=== PATIENT | female | born 1990 | race Native Hawaiian/Other Pacific Islander ===

== ENCOUNTER 2017-02-19 13:31 | Emergency (ER) | payer SELFPAY | END 2017-02-19 14:45 | disposition left against medical advice (07) | LOC: ED 13:31 | DX: T78.40XA Allergy, unspecified, initial encounter (principal); Z53.21 Procedure and treatment not carried out due to patient leaving prior to being seen by health care provider ==

== ENCOUNTER 2017-03-16 16:21 | Emergency (ER) | payer SELFPAY ==
[2017-03-16 16:52] LABS: Basophils % (Auto) 0.5 % (0.0-1.8); Eosinophils % (Auto) 1.7 % (0.0-4.3); Hematocrit 39.8 % (30.3-42.9); Hemoglobin 13.4 gm/dl (10.1-14.3); Mean Corpuscular HGB Conc 34 % (30-34); Mean Corpuscular Hemoglobin 31 pg (28-32); Mean Corpuscular Volume 90 fl (79-97); Platelet Count 185 K/mm3 (140-440); Red Blood Count 4.41 M/mm3 (3.65-5.03); Red Cell Distribution Width 13.2 % (13.2-15.2); White Blood Count 4.1 K/mm3 (4.5-11.0)
[2017-03-16 17:02] LABS: Anion Gap 19 mmol/L; BUN/Creatinine Ratio 18; Blood Urea Nitrogen 7 mg/dL (7-17); Calcium 8.8 mg/dL (8.4-10.2); Carbon Dioxide 21 mmol/L (22-30); Chloride 95.3 mmol/L (98-107); Glucose 112 mg/dL (65-100); Potassium 3.3 mmol/L (3.6-5.0); Sodium 132 mmol/L (137-145)
[2017-03-16 17:18] LABS: Bacteria,Urine 1+ /HPF (Negative); Bilirubin,Urine NEG (Negative); Blood,Urine SM (Negative); Ketones,Urine TR mg/dL (Negative); Leukocyte Esterase,Urine TR (Negative); Mucus,Urine 3+ /HPF; Nitrite,Urine NEG (Negative); Urobilinogen,Urine < 2.0 mg/dL (<2.0)
[2017-03-16] MEDS ORDERED: LACTATED RINGERS 1,000 ML IV ONE (19:33)
[2017-03-16] MEDS ORDERED: REGLAN IV ONE (19:34)
--- NOTE | 2017-03-16 19:35 | Emergency Department Report ---
ED HPI - General Chief complaint: Nausea/Vomiting/Diarrhea Stated complaint: , VOMITNG, DIARRHEA,DIZZY Time Seen by Provider: 03/16/17 19:33 Source: patient Mode of arrival: Ambulatory Limitations: No Limitations - History of Present Illness Initial comments: 27-year-old female past medical history none approximately 8-9 weeks by LMP which was the beginning of January 2017 presents with complaint of one week of intermittent nausea and vomiting. Denies abdominal pain denies vaginal bleeding denies dysuria denies fever or chills. Patient is [place]- speaking which I speak fluently is accompanied by her and daughters. Nontoxic appearing awake alert and oriented 3 MD Complaint: other (persistent nausea and vomiting) Onset/Timin -: week(s) Severity: moderate Improves with: none Worsens with: none Associated symptoms: nausea/vomiting :: Yes Number of weeks : 8 OB History - Previous Pregnancies: no complications Last menstrual period: 01/08/17 Pre-elder care: followed by OB - Related Data : 3 Para: 2 Previous Rx's Medication Instructions Recorded Last Taken Type Butalb/Acetaminophen/Caffeine 1 cap PO Q6HR PRN #10 cap 04/05/16 Unknown Rx [Fioricet 50-300-40 mg CAP] Doxylamine Succinate [Nighttime 25 mg PO QHS PRN #30 tablet 03/16/17 Unknown Rx Sleep-Aid] Sera Root [Sera] 250 mg PO BID PRN #60 capsule 03/16/17 Unknown Rx Metoclopramide HCl [Reglan TAB] 5 mg PO TIDAC PRN #12 tablet 03/16/17 Unknown Rx Pyridoxine [Vitamin B-6] 50 mg PO Q12H PRN #60 tablet 03/16/17 Unknown Rx Allergies Allergy/AdvReac Type Severity Reaction Status Date / Time No Known Allergies Allergy Verified 01/07/14 12:15 ED Review of Systems ROS: Stated complaint: , VOMITNG, DIARRHEA,DIZZY Other details as noted in HPI Constitutional: denies: chills, fever Eyes: denies: eye pain, eye discharge, vision change ENT: denies: ear pain, throat pain Respiratory: denies: cough, shortness of breath, wheezing Cardiovascular: denies: chest pain, palpitations Endocrine: no symptoms reported Gastrointestinal: nausea (1 week of nausea and vomiting). denies: abdominal pain, diarrhea Genitourinary: denies: urgency, dysuria, discharge Musculoskeletal: denies: back pain, joint swelling, arthralgia Skin: denies: rash, lesions Neurological: denies: headache, weakness, paresthesias Psychiatric: denies: anxiety, depression Hematological/Lymphatic: denies: easy bleeding, easy bruising ED Past Medical Hx - Past Medical History Previous Medical History?: No - Surgical History Past Surgical History?: No - Social History Smoking Status: Never Smoker Substance Use Type: None - Medications Home Medications: Home Medications Medication Instructions Recorded Confirmed Last Taken Type Butalb/Acetaminophen/Caffeine 1 cap PO Q6HR PRN #10 cap 04/05/16 Unknown Rx [Fioricet 50-300-40 mg CAP] Doxylamine Succinate [Nighttime 25 mg PO QHS PRN #30 tablet 03/16/17 Unknown Rx Sleep-Aid] Sera Root [Sera] 250 mg PO BID PRN #60 capsule 03/16/17 Unknown Rx Metoclopramide HCl [Reglan TAB] 5 mg PO TIDAC PRN #12 tablet 03/16/17 Unknown Rx Pyridoxine [Vitamin B-6] 50 mg PO Q12H PRN #60 tablet 03/16/17 Unknown Rx ED Physical Exam - General Limitations: No Limitations General appearance: alert, in no apparent distress - Head Head exam: Present: atraumatic, normocephalic - Eye Eye exam: Present: normal appearance, PERRL, EOMI - ENT ENT exam: Present: mucous membranes moist - Neck Neck exam: Present: normal inspection - Respiratory Respiratory exam: Present: normal lung sounds bilaterally. Absent: respiratory distress - Cardiovascular Cardiovascular Exam: Present: regular rate, normal rhythm. Absent: systolic murmur, diastolic murmur, rubs, gallop - GI/Abdominal GI/Abdominal exam: Present: soft, normal bowel sounds - Extremities Exam Extremities exam: Present: normal inspection - Back Exam Back exam: Present: normal inspection - Neurological Exam Neurological exam: Present: alert, oriented X3 - Psychiatric Psychiatric exam: Present: normal affect, normal mood - Skin Skin exam: Present: warm, dry, intact, normal color. Absent: rash ED Course Vital Signs 03/16/17 16:27 Temperature 98.9 F Pulse Rate 87 Respiratory 18 Rate Blood Pressure 124/81 O2 Sat by Pulse 97 Oximetry ED Medical Decision Making - Lab Data Result diagrams: 03/16/17 16:34 03/16/17 16:34 - Medical Decision Making A/P: Hyperemesis gravidarum, nausea and vomiting of 1-ultrasound shows live IUP 2-pt resuscitated with 3 L of IV fluid including normal saline lactate Ringer's and D5NS 3-patient given Reglan, significant reduction of nausea and patient now tolerating by mouth fluids and apple sauce before discharge 4-case discussed with Dr. Parra before discharge, I briefly discussed case with Dr. Nunn as patient has no ketones in urine will give IV fluid resuscitation and antiemetics and given by mouth challenge. Patient now tolerating by mouth therefore I will discharge with OB follow-up Critical care attestation.: If time is entered above; I have spent that time in minutes in the direct care of this critically ill patient, excluding procedure time. ED Disposition Clinical Impression: Nausea and vomiting during Disposition: DC-01 TO HOME OR SELFCARE Is pt being admited?: No Does the pt Need Aspirin: No Condition: Stable Instructions: Morning Sickness (ED), Hyperemesis Gravidarum (ED), Dehydration ( ED) Prescriptions: Doxylamine Succinate [Nighttime Sleep-Aid] 25 mg PO QHS PRN #30 tablet PRN Reason: Nausea Sera Root [Sera] 250 mg PO BID PRN #60 capsule PRN Reason: Nausea Metoclopramide HCl [Reglan TAB] 5 mg PO TIDAC PRN #12 tablet PRN Reason: Nausea Pyridoxine [Vitamin B-6] 50 mg PO Q12H PRN #60 tablet PRN Reason: Nausea Referrals: [facility] [Provider Group] - 3-5 Days Forms: Accompanied Note, Work/School Release Form(ED) Time of Disposition: 23:34 Print Language: ITALIAN
[2017-03-16] MEDS ORDERED: D5NS 1,000 ML IV SCH (20:00)
--- NOTE | 2017-03-16 20:33 | Ultrasound Report ---
FINAL REPORT PROCEDURE: US OB \T\lt; = 14 WEEKS FETUS TECHNIQUE: Real-time transabdominal sonography of the uterus, placenta, amniotic fluid, adnexa, and fetus was performed with image documentation. Measurements were obtained to determine age/size. M-mode Doppler was used to document heartbeat. CPT 21854 HISTORY: hyperemesis gravidarum COMPARISON: No prior studies are available for comparison. FINDINGS: CRL: 25.2 mm, which corresponds to a gestational age of: 9 weeks, 2 days. Yolk Sac: Normal. Embryonic Cardiac Activity: 163 beats per minute Gestational Sac: Normal. Amniotic fluid: Normal. Cervix: Normal. Right Ovary: Normal. Left Ovary: Normal. Estimated delivery date: 10/17/2017 Uterus and adnexa: Normal. IMPRESSION: Single live intrauterine gestation at approximately 9 weeks and 2 days. EDC by US 10/17/2017
--- NOTE | 2017-03-16 20:33 | Ultrasound Report ---
FINAL REPORT PROCEDURE: US OB \T\lt; = 14 WEEKS FETUS TECHNIQUE: Real-time transvaginal sonography of the uterus, placenta, amniotic fluid, adnexa, and fetus was performed with image documentation. Measurements were obtained to determine age/size. M-mode Doppler was used to document heartbeat. HISTORY: hyperemesis gravidarum COMPARISON: No prior studies are available for comparison. FINDINGS: CRL: 25.2 mm, which corresponds to a gestational age of: 9 weeks, 2 days. Yolk Sac: Normal. Embryonic Cardiac Activity: 163 beats per minute Gestational Sac: Normal. Amniotic fluid: Normal. Cervix: Normal. Right Ovary: Normal. Left Ovary: Normal. Estimated delivery date: 10/17/2017 Uterus and adnexa: Normal. IMPRESSION: Single live intrauterine gestation at approximately 9 weeks and 2 days. EDC by US 10/17/2017
[2017-03-16 21:25] LABS: Alanine Aminotransferase 21 units/L (7-56); Albumin 3.8 g/dL (3.9-5); Albumin/Globulin Ratio 1.1 %; Alkaline Phosphatase 32 units/L (35-129); Amylase 68 units/L (27-131); Bilirubin,Total < 0.20 mg/dL (0.1-1.2); Lipase 40 units/L (13-60); Total Protein 7.3 g/dL (6.3-8.2)
[2017-03-16 21:26] LABS: Bilirubin,Direct < 0.2 mg/dL (0-0.2)
[2017-03-16] MEDS ORDERED: ZOFRAN IV ONE (21:57)
[2017-03-16] MEDS ORDERED: NACL 0.9% 1000 ML 1,000 ML IV ONE (21:58)
[2017-03-16 23:48] VITALS: BP 118/77
== END 2017-03-16 23:48 | disposition home or self-care (01) ==
LOC: ED 16:21
DX: O21.0 Mild hyperemesis gravidarum (principal); Z3A.08 8 weeks gestation of pregnancy
CPT/HCPCS: 36415; 76801; 76817; 80048; 80074; 81001; 82150; 83690; 84702; 85025; 86900; 86901; 96361; 96374; 96375; 99284; J2405; J2765; J7030; J7042; J7120

== ENCOUNTER 2017-04-27 07:40 | Emergency (ER) | payer MEDICAID, OTHER ==
[2017-04-27 07:56] VITALS: BP 118/68
[2017-04-27 08:52] LABS: Bacteria,Urine 1+ /HPF (Negative); Bilirubin,Urine NEG (Negative); Blood,Urine NEG (Negative); Ketones,Urine NEG (Negative); Leukocyte Esterase,Urine NEG (Negative); Mucus,Urine 1+ /HPF; Nitrite,Urine NEG (Negative); Protein,Urine <15 mg/dL mg/dL (Negative); Urobilinogen,Urine < 2.0 mg/dL (<2.0)
--- NOTE | 2017-04-27 09:43 | Emergency Department Report ---
ED HPI - General Chief complaint: Urogenital-Female Stated complaint: L SIDE VAG PAIN, PREG Time Seen by Provider: 04/27/17 09:39 Source: patient Mode of arrival: Ambulatory Limitations: No Limitations - History of Present Illness Initial comments: Pt reports 15 weeks gestation and has had pelvic pain, feeling of decreased movement x 3 days. Also reports some yellow vaginal discharge. MD Complaint: abdominal pain, vaginal discharge -: Gradual, days(s) (3) Location: pelvis Radiation: none Severity: mild Severity scale (0 -10): 3 Quality: cramping Consistency: intermittent Improves with: none Worsens with: none Associated symptoms: vaginal discharge Vaginal bleeding: none :: Yes Number of weeks : 15 OB History - Current : no complications - Related Data Home Medications Medication Instructions Recorded Confirmed Last Taken No Known Home Medications [No 04/27/17 04/27/17 Unknown Reported Home Medications] Allergies Allergy/AdvReac Type Severity Reaction Status Date / Time No Known Allergies Allergy Verified 01/07/14 12:15 ED Review of Systems ROS: Stated complaint: L SIDE VAG PAIN, PREG Other details as noted in HPI Comment: All other systems reviewed and negative Constitutional: denies: chills, fever Eyes: denies: eye pain, eye discharge, vision change ENT: denies: ear pain, throat pain Respiratory: denies: cough, shortness of breath, wheezing Cardiovascular: denies: chest pain, palpitations Endocrine: no symptoms reported Gastrointestinal: abdominal pain. denies: nausea, diarrhea Genitourinary: discharge. denies: urgency, dysuria Musculoskeletal: denies: back pain, joint swelling, arthralgia Skin: denies: rash, lesions Neurological: denies: headache, weakness, paresthesias Psychiatric: denies: anxiety, depression Hematological/Lymphatic: denies: easy bleeding, easy bruising ED Past Medical Hx - Past Medical History Previous Medical History?: No - Surgical History Past Surgical History?: No - Social History Smoking Status: Never Smoker Substance Use Type: None - Medications Home Medications: Home Medications Medication Instructions Recorded Confirmed Last Taken Type No Known Home Medications [No 04/27/17 04/27/17 Unknown History Reported Home Medications] ED Physical Exam - General Limitations: No Limitations General appearance: alert, in no apparent distress - Head Head exam: Present: atraumatic, normocephalic - Eye Eye exam: Present: normal appearance - ENT ENT exam: Present: mucous membranes moist - Neck Neck exam: Present: normal inspection - Respiratory Respiratory exam: Present: normal lung sounds bilaterally. Absent: respiratory distress - Cardiovascular Cardiovascular Exam: Present: regular rate, normal rhythm. Absent: systolic murmur, diastolic murmur, rubs, gallop - GI/Abdominal GI/Abdominal exam: Present: soft, normal bowel sounds, other (gravid). Absent: distended, tenderness, guarding, rebound - Extremities Exam Extremities exam: Present: normal inspection - Back Exam Back exam: Present: normal inspection - Neurological Exam Neurological exam: Present: alert, oriented X3 - Psychiatric Psychiatric exam: Present: normal affect, normal mood - Skin Skin exam: Present: warm, dry, intact, normal color. Absent: rash ED Course Vital Signs 04/27/17 07:48 Temperature 98.3 F Pulse Rate 80 Respiratory 18 Rate Blood Pressure 118/68 O2 Sat by Pulse 98 Oximetry - Reevaluation(s) Reevaluation #1: 04/27/17 10:47 Pt is in NAD and stable for d/c. ED Medical Decision Making - Lab Data UA normal - Radiology Data Radiology results: report reviewed normal IUP - Medical Decision Making Pt presents with intermittent pelvic pain in suggestive of round ligament pain. US is normal. Pt refused pelvic and said she would prefer her OB to do it and will call them for follow up Saturday. Advised abstinence from sexual activity until follow up. - Differential Diagnosis threatened ab, pprom, round ligament pain Critical care attestation.: If time is entered above; I have spent that time in minutes in the direct care of this critically ill patient, excluding procedure time. ED Disposition Clinical Impression: Pelvic pain affecting in second trimester, antepartum Disposition: TO HOME OR SELFCARE Is pt being admited?: No Condition: Good Instructions: Abdominal Pain in (ED) Referrals: JOSIAH HELMS [Other] - 3-5 Days DENILSON SIMMONS MD [Staff Physician] - 2-3 Days Time of Disposition: 10:49
--- NOTE | 2017-04-27 10:28 | Ultrasound Report ---
OB ULTRASOUND History: Pelvic pain, decreased movement, 15 week gestation. Comparison: 03/16/17 Technique: Transabdominal ultrasound with Doppler interrogation. Gestation: Single Position: Breech Amniotic Fluid: Within normal limits Placenta: Posterior Placental Grade: 0 Heart Rate: 140 BPM Cervical length: 3.4 cm (Normal > 3 cm) x It is too early for a anatomical survey BPD: 3.3 cm = 16 w 1 d HC: 12.5 cm = 16 w 2 d AC: 10.2 cm = 16 w 1 d FL: 1.7 cm = 15 w 1 d HC/AC Ratio: 1.23 Cephalic Index: 83.0 Estimated Weight: 132 grams Clinical age = 15 w 1 d EDC: 10/18/17 US Gest. Age = 16 w 0 d EDC: 10/12/17 Impression: Viable, single intrauterine as described. No acute abnormality is detected.
== END 2017-04-27 10:55 | disposition home or self-care (01) ==
LOC: ED 07:40
DX: O26.892 Other specified pregnancy related conditions, second trimester (principal); R10.2 Pelvic and perineal pain; Z3A.15 15 weeks gestation of pregnancy
CPT/HCPCS: 76805; 81001; 99284

== ENCOUNTER 2017-06-13 16:09 | Outpatient (CLI) | payer MEDICAID ==
[2017-06-13 16:42] VITALS: BP 121/70
[2017-06-13] MEDS ORDERED: LACTATED RINGERS 500 ML IV ONE (17:00)
[2017-06-13 17:12] LABS: Bacteria,Urine 3+ /HPF (Negative); Bilirubin,Urine NEG (Negative); Blood,Urine SM (Negative); Color,Urine Yellow (Yellow); Hyaline Casts,Urine 1 /LPF; Mucus,Urine 1+ /HPF; Nitrite,Urine NEG (Negative); Protein,Urine <15 mg/dL mg/dL (Negative); Urobilinogen,Urine < 2.0 mg/dL (<2.0)
== END 2017-06-13 18:30 | disposition home or self-care (01) ==
LOC: TRG 16:09
PROVIDERS: ATTEND Obstetrics & Gynecology
DX: O47.02 False labor before 37 completed weeks of gestation, second trimester (principal); Z3A.24 24 weeks gestation of pregnancy
CPT/HCPCS: 59025; 81001; 96360

== ENCOUNTER 2017-07-27 23:16 | Outpatient (CLI) | payer MEDICAID ==
[2017-07-27] MEDS ORDERED: LACTATED RINGERS 1,000 ML IV ONE (23:34)
[2017-07-27 23:46] VITALS: BP 115/63
[2017-07-28 00:40] LABS: Bacteria,Urine 1+ /HPF (Negative); Bilirubin,Urine NEG (Negative); Blood,Urine NEG (Negative); Color,Urine Yellow (Yellow); Mucus,Urine FEW /HPF; Nitrite,Urine NEG (Negative); Protein,Urine <15 mg/dL mg/dL (Negative); Urobilinogen,Urine < 2.0 mg/dL (<2.0)
== END 2017-07-28 01:50 | disposition home or self-care (01) ==
LOC: TRG 23:16
PROVIDERS: ATTEND Obstetrics & Gynecology
DX: O47.03 False labor before 37 completed weeks of gestation, third trimester (principal); Z3A.30 30 weeks gestation of pregnancy
CPT/HCPCS: 81001

== ENCOUNTER 2017-08-14 09:41 | Outpatient (CLI) | payer MEDICAID ==
[2017-08-14 10:46] LABS: Bacteria,Urine 1+ /HPF (Negative); Bilirubin,Urine NEG (Negative); Blood,Urine SM (Negative); Color,Urine Yellow (Yellow); Mucus,Urine 1+ /HPF; Protein,Urine <15 mg/dL mg/dL (Negative); Urobilinogen,Urine < 2.0 mg/dL (<2.0)
[2017-08-16 12:02] VITALS: BP 107/66
== END 2017-08-14 11:30 | disposition home or self-care (01) ==
LOC: TRG 09:41
PROVIDERS: ATTEND Obstetrics & Gynecology
DX: O47.03 False labor before 37 completed weeks of gestation, third trimester (principal); Z3A.33 33 weeks gestation of pregnancy
CPT/HCPCS: 59025; 81001

== ENCOUNTER 2017-09-24 19:30 | Inpatient (IN) | payer MEDICAID ==
[2017-09-24] MEDS ORDERED: MINERAL OIL PO PRN (22:55)
[2017-09-24] MEDS ORDERED: POLYCILLIN/NS 2 GM/100 ML 2 GM/100 ML BAG IV ONE (22:55)
[2017-09-24] MEDS ORDERED: BRETHINE SUB-Q PRN (22:55)
[2017-09-24] MEDS ORDERED: ePHEDrine SULFATE IV PRN (22:55)
[2017-09-24] MEDS ORDERED: NARCAN 0.4 MG/1 ML IV PRN (22:55)
[2017-09-24] MEDS ORDERED: ZOFRAN IV PRN (22:55)
[2017-09-24] MEDS ORDERED: SUBLIMAZE IV PRN (22:55)
[2017-09-24] MEDS ORDERED: BRETHINE IVP PRN (22:55)
[2017-09-24] MEDS ORDERED: XYLOCAINE 2% INFILTRATI ONE (22:55)
[2017-09-24] MEDS ORDERED: PITOCin/NS 30 UNIT/500ML 30 UNITS/500 ML BAG IV SCH (23:00)
[2017-09-24] MEDS ORDERED: LACTATED RINGERS 1,000 ML IV SCH (23:00)
[2017-09-24] MEDS ORDERED: PITOCin/NS 20 UNIT/1000ML DRIP 20 UNITS/1,000 ML BAG IV SCH (23:00)
--- NOTE | 2017-09-24 23:32 | Ultrasound Report ---
FINAL REPORT PROCEDURE: US OB LIMITED TECHNIQUE: Real-time limited sonographic examination was performed for evaluation of size, position, heartbeat, fluid volume for each fetus with image documentation (1 or more fetuses). CPT 35663 HISTORY: Decreased movement; BPP; HERBIE COMPARISON: No prior studies are available for comparison. FINDINGS: biophysical profile: breathing movements: 2. movements: 2. posterior and tone: 2. Amniotic fluid volume: 2. Total score: 8/8. Heart rate 156 beats per minute. IMPRESSION: Normal biophysical profile.
--- NOTE | 2017-09-24 23:34 | Ultrasound Report ---
FINAL REPORT PROCEDURE: US OB LIMITED TECHNIQUE: Real-time limited sonographic examination was performed for evaluation of size, position, heartbeat, fluid volume for each fetus with image documentation (1 or more fetuses). CPT 93674 HISTORY: Decreased movement; BPP; HERBIE COMPARISON: No prior studies are available for comparison. FINDINGS: biophysical profile: breathing movements: 2. movements: 2. posterior and tone: 2. Amniotic fluid volume: 2. Total score: 8/8. Heart rate 156 beats per minute. IMPRESSION: Normal biophysical profile.
[2017-09-25 01:15] LABS: Hematocrit 36.4 % (30.3-42.9); Hemoglobin 11.8 gm/dl (10.1-14.3); Mean Corpuscular HGB Conc 33 % (30-34); Mean Corpuscular Hemoglobin 30 pg (28-32); Mean Corpuscular Volume 91 fl (79-97); Platelet Count 157 K/mm3 (140-440); Red Cell Distribution Width 16.1 % (13.2-15.2)
[2017-09-25] MEDS ORDERED: AMPICILLIN/NS 1 GM/50 ML 1 GM/50 ML BAG IV SCH ×2 (03:00→07:00)
--- NOTE | 2017-09-25 03:02 | Ultrasound Report ---
FINAL REPORT PROCEDURE: US OB LIMITED TECHNIQUE: Real-time limited sonographic examination was performed for evaluation of size, position, heartbeat, fluid volume for each fetus with image documentation (1 or more fetuses). CPT 64699 HISTORY: position COMPARISON: No prior studies are available for comparison. FINDINGS: Fetus is in a cephalic presentation. Heart rate is 156 beats per minute. IMPRESSION: Fetus is in a cephalic presentation. Heart rate is 156 beats per minute.
[2017-09-25] MEDS ORDERED: POLYCILLIN/NS 2 GM/100 ML 2 GM/100 ML BAG IV ONE (03:17)
[2017-09-25] MEDS ORDERED: CALCIUM GLUCONATE IV ONE ×2 (05:06→06:00)
[2017-09-25] MEDS ORDERED: MAGNESIUM SULFATE 4GM/100ML 4 GM/100 ML BAG IV ONE (05:06)
[2017-09-25] MEDS ORDERED: APRESOLINE IV PRN (05:06)
[2017-09-25] MEDS ORDERED: NORMODYNE IV PRN (05:06)
--- NOTE | 2017-09-25 05:06 | Event Note ---
Date: 09/25/17 Pt admitted for induction secondary to oligohydramnios (HERBIE 5) at 36 wks. Her blood pressures increased to severe range PIH labs collected. Magnesium sulfate started. Continue to monitor clinical status.
[2017-09-25] MEDS ORDERED: STADOL ONE (05:52)
[2017-09-25] MEDS ORDERED: LACTATED RINGERS 1,000 ML IV SCH ×2 (06:00→20:00)
[2017-09-25] MEDS ORDERED: NACL 0.9% IV ONE (06:00)
[2017-09-25] MEDS ORDERED: MAGNESIUM SULFATE 40GM/1000ML 40 GM/1,000 ML BAG IV SCH (06:00)
[2017-09-25 06:18] LABS: Alanine Aminotransferase 14 units/L (7-56); Uric Acid 4.9 mg/dL (3.5-7.6)
--- NOTE | 2017-09-25 06:46 | Procedure Note ---
OB Delivery Note - Delivery Date of Delivery: 09/25/17 Oleomargarine Maker: ZOË GOODMAN (requested to room by staff) Estimated blood loss: 300cc - Vaginal Delivery presentation: vertex Delivery position: OA Intrapartum events: abruption (placenta delivered with baby), other(please specify) (precipitous delivery) Delivery induction: oxytocin Delivery augmentation: pitocin Delivery monitor: external FHT, external uterine Route of delivery: Delivery placenta: spontaneous Episiotomy: none Delivery laceration: none Anesthesia: none Delivery comments: emergency light on Staff requests my presence to LDR. NICU in room. live born female precipitously. SROM with delivery and placenta delivered with baby, abruption. 4/9, EBL 300, Wgt 4-8. Pit IVFs. Cord blood obtained. Placenta to pathology. notified of delivery. Mom and baby remain LDR stable. - Infant A at 1 minute: 4 at 5 minutes: 8 Gender: Female (wgt 4-8)
--- NOTE | 2017-09-25 07:18 | History and Physical Report ---
History of Present Illness Date of examination: 09/25/17 Date of admission: 09/24/17 23:54 Chief complaint: I think my water broke History of present illness: Pt is a 27 year old TERRIE 10/18/17 at 36w5d who initially presented for concern for leakage of fluid. Nitrizine was negative. Pt had low normal HERBIE in the office last week so BPP with HERBIE was repeated. HERBIE was noted to be 5.2 cm. The patient was then admitted for induction of labor secondary to oligohydramnios. During her hospital stay, she developed severe range blood pressures, was diagnosed with severe preeclampsia, and started on magnesium sulfate for seizure prophylaxis. Her labor progressed very quickly, and she delivered precipitously attended by GREGORIO Terrell, who noted a placental abruption with delivery of the placenta immediately after delivery of the baby. Please see delivery note for details. She has had care at [facility] since 13 wks complicated by limited anatomical survey with normal follow up scan. She is GBS unknown. Past History Past Medical History: no pertinent history Past Surgical History: no surgical history Social history: no significant social history - Obstetrical History Expected Date of Delivery: 10/18/17 Actual Gestation: 36 Week(s) 5 Day(s) : 3 Para: 2 Medications and Allergies Allergies Allergy/AdvReac Type Severity Reaction Status Date / Time No Known Allergies Allergy Verified 01/07/14 12:15 Home Medications Medication Instructions Recorded Confirmed Last Taken Type Vit-Fe Fumar-FA [ 1 tab PO QDAY 09/25/17 09/25/17 09/24/17 History Vitamin] Active Meds: Active Medications Ephedrine Sulfate (Ephedrine Sulfate) 10 mg IV Q2M PRN PRN Reason: Hypotension Fentanyl (Sublimaze) 100 mcg IV Q2H PRN PRN Reason: Labor Pain Last Admin: 09/25/17 03:15 Dose: 100 mcg Hydralazine HCl (Apresoline) 5 mg IV Q30MIN PRN PRN Reason: Hypertension Lactated Ringer's (Lactated Ringers) 1,000 mls @ 125 mls/hr IV DIRECT SOPHY Last Admin: 09/25/17 03:16 Dose: 125 mls/hr Oxytocin/Sodium Chloride (Pitocin/Ns 20 Unit/1000ml Drip) 20 units in 1,000 mls @ 125 mls/hr IV DIRECT SOPHY Oxytocin/Sodium Chloride (Pitocin/Ns 30 Unit/500ml) 30 units in 500 mls @ 4 mls /hr IV TITR SOPHY; Protocol Last Admin: 09/25/17 03:16 Dose: 4 mls/hr, 4 mls/hr Ampicillin Sodium (Ampicillin/Ns 1 Gm/50 Ml) 1 gm in 50 mls @ 100 mls/hr IV Q4H SOPHY; Protocol Lactated Ringer's (Lactated Ringers) 1,000 mls @ 125 mls/hr IV DIRECT SOPHY Magnesium Sulfate (Magnesium Sulfate 40gm/1000ml) 40 gm in 1,000 mls @ 25 mls/ hr IV DIRECT SOPHY Labetalol HCl (Normodyne) 20 mg IV ONCE PRN PRN Reason: Hypertension Mineral Oil (Mineral Oil) 30 ml PO QHS PRN PRN Reason: Constipation Naloxone HCl (Narcan 0.4 Mg/1 Ml) 0.1 mg IV Q2MIN PRN PRN Reason: Res Rate </= 8 or 02 SAT < 92% Ondansetron HCl (Zofran) 4 mg IV Q8H PRN PRN Reason: Nausea And Vomiting Terbutaline Sulfate (Brethine) 0.25 mg SUB-Q ONCE PRN PRN Reason: Hyperstimulation/Hypertonicity Terbutaline Sulfate (Brethine) 0.25 mg IVP ONCE PRN PRN Reason: Hyperstimulation/Hypertonicity Review of Systems All systems: negative - Vital Signs Vital signs: Vital Signs Temp Pulse Resp BP Pulse Ox 98.6 F 83 16 133/84 98 09/24/17 19:48 09/24/17 19:48 09/24/17 19:48 09/24/17 19:48 09/24/17 19:48 Temp Pulse Resp BP Pulse Ox 98.6 F 83 16 133/84 98 09/24/17 19:48 09/24/17 19:48 09/24/17 19:48 09/24/17 19:48 09/24/17 19:48 - Physical Exam Breasts: Positive: deferred Cardiovascular: Regular rate Lungs: Positive: Clear to auscultation Abdomen: Positive: soft Extremities: Positive: normal Results Result Diagrams: 09/25/17 00:38 09/25/17 04:51 Abnormal lab results 09/25/17 09/25/17 Range/Units 00:38 04:51 RDW 16.1 H (13.2-15.2) % Creatinine 0.4 L (0.7-1.2) mg/dL All other labs normal. Assessment and Plan A: IUP at 36w5d Oligohydramnios Severe Preeclampsia on Magnesium sulfate s/p spontaneous vaginal delivery Placental Abruption GBS unknown P: Admit to labor and delivery. Pitocin induction Continue to closely monitor clinical status.
[2017-09-25] MEDS ORDERED: MOTRIN PO ONE (09:31)
[2017-09-25] MEDS ORDERED: TUCKS PAD TP PRN (13:00)
[2017-09-25] MEDS ORDERED: TYLENOL PO PRN (13:00)
[2017-09-25] MEDS ORDERED: PITOCin/NS 20 UNIT/1000ML DRIP 20 UNITS/1,000 ML BAG IV SCH (13:00)
[2017-09-25] MEDS ORDERED: ZOFRAN IV PRN (13:00)
[2017-09-25] MEDS ORDERED: PHENERGAN PR PRN (13:00)
[2017-09-25] MEDS ORDERED: LANSINOH TP PRN ×2 (13:00)
[2017-09-25] MEDS ORDERED: SODIUM CHLORIDE FLUSH SYRINGE 10 ML IV PRN (13:00)
[2017-09-25] MEDS ORDERED: PHENERGAN PO PRN (13:00)
[2017-09-25] MEDS ORDERED: DERMOPLAST TP PRN (13:00)
[2017-09-25] MEDS ORDERED: BENADRYL PO PRN (13:00)
[2017-09-25] MEDS ORDERED: LACTATED RINGERS 1,000 ML ONE (14:36)
[2017-09-25] MEDS: MOTRIN PO SCH ×2 (16:15→22:20)
[2017-09-25] MEDS: NORCO 5/325 PO PRN (16:15)
[2017-09-25 19:37] LABS: Hematocrit 34.8 % (30.3-42.9); Hemoglobin 11.6 gm/dl (10.1-14.3)
[2017-09-25] MEDS ORDERED: DULCOLAX PR PRN (22:00)
[2017-09-25] MEDS ORDERED: MILK OF MAGNESIA PO PRN (22:00)
[2017-09-25] MEDS: FEOSOL PO SCH (22:20)
[2017-09-26] MEDS ORDERED: BOOSTRIX IM ONE (06:00)
--- NOTE | 2017-09-26 08:27 | Progress Note ---
Assessment and Plan A/P PPD 1 preeeclampsia s/p mag ( precipitous) BP 120-130/80s hemoglobin 11.8-11.6 O+ no rhogam indicated routine PP orders Subjective - Subjective Date of service: 09/26/17 Principal diagnosis: , placenta abruption , precipitous delivery Patient reports: appetite normal, voiding normally, pain well controlled, flatus , ambulating normally : doing well Objective - Vital Signs Latest vital signs: Vital Signs Temp Pulse Resp BP BP Pulse Ox 09/26/17 04:30 98.1 F 94 H 20 133/84 95 09/26/17 02:05 98.0 F 94 H 20 130/83 99 09/26/17 00:54 97.6 F 92 H 20 131/82 98 09/25/17 22:10 98.8 F 96 H 18 149/89 98 09/25/17 16:33 98.6 F 96 H 18 127/77 98 09/25/17 15:33 96 H 97 09/25/17 12:15 95 H 98 09/25/17 12:14 98.7 F 91 H 18 147/89 98 09/25/17 10:20 92 H 98 09/25/17 10:19 98.1 F 92 H 18 134/81 98 09/25/17 09:30 97.9 F 92 H 20 136/87 Intake and Output 09/25/17 09/26/17 09/26/17 23:59 07:59 15:59 Intake Total 540 Output Total 2300 Balance -1760 Intake: Oral 540 Output: Urine 2300 Indwelling Catheter 2300 Other: Intake, Other Source Saline Solution Total, Intake Amount 540 Total, Output Amount 2300 # Bowel Movements 0 - Exam Breasts: Present: normal Cardiovascular: Present: Regular rate, Normal S1 Lungs: Present: Clear to auscultation, Normal air movement Abdomen: Present: normal appearance, soft, normal bowel sounds. Absent: distention, tenderness, guarding Vulva: both: normal Uterus: Present: normal, firm, fundal height below umbilicus. Absent: bogginess , tenderness Extremities: Present: normal Deep Tendon Reflex Grade: Normal +2 - Labs Labs: Abnormal lab results 09/25/17 09/25/17 09/26/17 Range/Units 19:07 23:43 06:00 Magnesium 3.20 H 3.20 H 3.00 H (1.7-2.3) mg/dL
[2017-09-26] MEDS ORDERED: M-M-R II VACCINE SUB-Q ONE (11:00)
[2017-09-26] MEDS: FEOSOL PO SCH ×2 (11:56→22:15)
[2017-09-26] MEDS: MOTRIN PO SCH ×3 (11:56→18:04)
[2017-09-26] MEDS: NORCO 5/325 PO PRN (17:59)
[2017-09-27] MEDS: MOTRIN PO SCH ×2 (01:13→06:30)
--- NOTE | 2017-09-27 09:50 | Progress Note ---
Assessment and Plan A: PPD#2 s/p at 36 wks Placental abruption Severe Preeclampsia s/p mag sulfate x 24 hrs SGA P: Discharge home today with follow up in 1 week for blood pressure check. Subjective - Subjective Date of service: 09/27/17 Principal diagnosis: , placenta abruption , precipitous delivery Interval history: No overnight events. BP WNL without medication. Patient reports: appetite normal, voiding normally, pain well controlled, ambulating normally, no dizzy ambulation [place]: doing well Objective - Vital Signs Latest vital signs: Vital Signs Temp Pulse Resp BP BP Pulse Ox 09/27/17 04:43 98.6 F 89 20 134/83 09/27/17 00:00 98.0 F 82 20 124/86 09/26/17 20:00 98.4 F 70 20 120/81 09/26/17 15:56 98.2 F 76 18 124/71 98 09/26/17 12:13 98.1 F 81 20 141/91 98 Intake and Output 09/26/17 09/27/17 09/27/17 22:59 06:59 14:59 Intake Total 1440 Balance 1440 Intake: Oral 1440 Other: Total, Intake Amount 240 # Voids Void 1 1 - Exam Breasts: Present: deferred Cardiovascular: Present: Regular rate Lungs: Present: Clear to auscultation Abdomen: Present: soft (obese) Uterus: Present: fundal height below umbilicus Extremities: Present: normal
--- NOTE | 2017-09-27 09:55 | Discharge Summary ---
Providers - Providers Date of Admission: 09/24/17 23:54 Date of discharge: 09/27/17 Attending physician: JOSIAH PARK 09/25/17 12:22 Consult to Gymnastics Coach [CONS] Routine Reason For Exam: assistance with , SNS Primary care physician: JOSIAH PARK Hospitalization Reason for admission: induction of labor Delivery: Procedure details: Please see delivery note. Episiotomy: none Laceration: none Other procedures: none complications: none Discharge diagnosis: delivery [place] baby: female Hospital course: Pt was admitted for induction of labor secondary to oligohydramnios at 36 wks. She subsequently developed severe preeclampsia and was placed on magnesium sulfate for seizure prophylaxis. During her labor, the patient states placental abruption and rapidly delivered the baby and the placenta. She continued magnesium sulfate for 24 hours after delivery and the is doing well, though found to be small for gestational age. The remainder of her course was uncomplicated and she met discharge criteria on day #2. She'll follow up in the office in 1 week for blood pressure check. Condition at discharge: Stable Disposition: [id number] TO HOME OR SELFCARE - Discharge Diagnoses (1) Placenta abruption, delivered, current hospitalization Status: Acute (2) Obesity (BMI 35.0-39.9 without comorbidity) Status: Acute (3) IUGR (intrauterine growth restriction) Status: Acute (4) Oligohydramnios in third trimester Status: Acute Qualifiers: Fetus number: single or unspecified fetus Qualified Code(s): O41.03X0 - Oligohydramnios, third trimester, not applicable or unspecified (5) Pre-eclampsia, severe, third trimester Status: Acute Plan - Discharge Medications Prescriptions: HYDROcodone/APAP 5-325 [[place] 5/325] 1 each PO Q6HR PRN #20 tablet PRN Reason: Pain Ibuprofen [Motrin] 800 mg PO Q8HR PRN #30 tablet PRN Reason: Pain - Provider Discharge Summary Activity: routine, no sex for 6 weeks, no heavy lifting 4 weeks, no strenuous exercise Diet: routine Instructions: routine Additional instructions: [] Smoking cessation referral if applicable(refer to patient education folder for contact #) [] Refer to [facility] Booklet Call your doctor immediately for: * Fever > 100.5 * Heavy vaginal bleeding ( >1 pad per hour) * Severe persistent headache * Shortness of breath * Reddened, hot, painful area to leg or breast * Drainage or odor from incision. * Keep incision clean and dry at all times and follow doctor's instructions regarding bathing/showering - Follow up plan Follow up: JOSIAH PARK MD [Primary Care Provider] - 7 Days
[2017-09-27 13:31] VITALS: BP 136/87
== END 2017-09-27 16:00 | disposition home or self-care (01) | DRG 774 ==
LOC: TRG 19:30 → LD 23:54 → OB 09-25 09:44
PROVIDERS: ADMIT Obstetrics & Gynecology; ATTEND Obstetrics & Gynecology
PROC: 10E0XZZ Delivery of Products of Conception, External Approach (ICD-10-PCS; principal; 2017-09-25)
PROC: 3E0234Z Introduction of Serum, Toxoid and Vaccine into Muscle, Percutaneous Approach (ICD-10-PCS; 2017-09-25)
PROC: 3E033VJ Introduction of Other Hormone into Peripheral Vein, Percutaneous Approach (ICD-10-PCS; 2017-09-25)
DX: O14.14 Severe pre-eclampsia complicating childbirth (principal); O62.3 Precipitate labor; Z3A.36 36 weeks gestation of pregnancy; Z37.0 Single live birth; Z23 Encounter for immunization; O41.03X0 Oligohydramnios, third trimester, not applicable or unspecified; O99.214 Obesity complicating childbirth; E66.9 Obesity, unspecified; Z68.37 Body mass index [BMI] 37.0-37.9, adult; O45.93 Premature separation of placenta, unspecified, third trimester; O36.5930 Maternal care for other known or suspected poor fetal growth, third trimester, not applicable or unspecified
CPT/HCPCS: 36415; 76815; 76819; 82565; 83735; 84450; 84460; 84550; 85014; 85018; 85027; 86592; 86850; 86900; 86901; 88307; 99211; G0463; J0290; J0360; J0595; J0610; J2590; J3010; J3475; J7120

== ENCOUNTER 2018-12-15 05:18 | Inpatient (IN) | payer MEDICAID ==
[2018-12-15] MEDS ORDERED: LACTATED RINGERS 1,000 ML IV ONE (05:34)
[2018-12-15] MEDS ORDERED: COLACE PO PRN ×2 (06:11→08:41)
[2018-12-15] MEDS ORDERED: AMPICILLIN/NS 2 GM/100 ML 2 GM/100 ML BAG IV ONE (06:11)
[2018-12-15] MEDS ORDERED: MAGNESIUM SULFATE 4GM/100ML 4 GM/100 ML BAG IV ONE ×2 (06:30→06:34)
[2018-12-15] MEDS ORDERED: MAGNESIUM SULFATE 40GM/1000ML 40 GM/1,000 ML BAG IV ONE (06:33)
[2018-12-15] MEDS: CELESTONE SOLUSPAN IM SCH (06:40)
[2018-12-15 06:43] LABS: Basophils % (Auto) 0.5 % (0.0-1.8); Eosinophils # (Auto) 0.2 K/mm3 (0.0-0.4); Hematocrit 34.1 % (30.3-42.9); Hemoglobin 11.1 gm/dl (10.1-14.3); Lymphocytes # (Auto) 2.6 K/mm3 (1.2-5.4); Mean Corpuscular HGB Conc 33 % (30-34); Mean Corpuscular Volume 82 fl (79-97); Monocytes # (Auto) 0.5 K/mm3 (0.0-0.8); Platelet Count 187 K/mm3 (140-440); Red Blood Count 4.15 M/mm3 (3.65-5.03); Red Cell Distribution Width 15.3 % (13.2-15.2)
[2018-12-15 06:51] LABS: Bacteria,Urine 1+ /HPF (Negative); Bilirubin,Urine NEG (Negative); Blood,Urine NEG (Negative); Color,Urine Yellow (Yellow); Mucus,Urine FEW /HPF; Protein,Urine <15 mg/dL mg/dL (Negative); Urobilinogen,Urine < 2.0 mg/dL (<2.0)
[2018-12-15 07:01] LABS: Amphetamine Screen,Urine PRESUMPTIVE NEGATIVE; Benzodiazepines Screen,Urine PRESUMPTIVE NEGATIVE; Cannabinoid Screen,Urine PRESUMPTIVE NEGATIVE; Cocaine Screen,Urine PRESUMPTIVE NEGATIVE; Methadone Screen,Urine PRESUMPTIVE NEGATIVE; Opiate Screen,Urine PRESUMPTIVE NEGATIVE
[2018-12-15 07:16] LABS: Hepatitis C Virus Antibody Non-Reactive (NonReactive)
--- NOTE | 2018-12-15 07:54 | Ultrasound Report ---
ULTRASOUND PELVIS INDICATION: labor. TECHNIQUE: Transabdominal. Duplex Color Doppler used: Yes. COMPARISON: OB ultrasound from 09/25/2017. FINDINGS: There is a single intrauterine . Biparietal Diameter = 8.3 cm = 33 weeks, 2 day(s). Head Circumference = 30.4 cm = 33 weeks, 6 day(s). Abdominal Circumference = 29.4 cm = 33 weeks, 2 day(s). Femur Length = 6.2 cm = 32 weeks, 0 day(s). Average Ultrasound Age (AUA) = 33 weeks, 1 day(s). Heart Rate: 141 beats per minute. Estimated Weight in grams (if calculated): 2100 Estimated Weight Growth Percentile (if calculated): 37 Position: cephalic. Cervix: Not well visualized. Placenta: anterior and free of the os. Amniotic Fluid Index (HERBIE) in cm (if calculated): 17.4. Maternal Adnexa: No significant abnormality. IMPRESSION: 1. No acute sonographic abnormality of the pelvis. 2. Single live intrauterine with an estimated age of 33 weeks, 1 day. Signer Name: Rick Mae MD Signed: 12/15/2018 7:49 AM Workstation Name: [id number]
[2018-12-15] MEDS: MAGNESIUM SULFATE 40GM/1000ML 40 GM/1,000 ML BAG IV SCH (07:58)
[2018-12-15] MEDS ORDERED: TYLENOL PO PRN (08:41)
--- NOTE | 2018-12-15 08:41 | History and Physical Report ---
History of Present Illness Date of examination: 12/15/18 Date of admission: 12/15/18 06:46 Chief complaint: contractions History of present illness: Pt is a 28yo HF EDC 02/01/19; EGA 33 1/7 weeks presents to L&D complaining of RUC's,. She denies ROM or bleeding. She received care at [facility], but records are not available. Past History Past Medical History: no pertinent history Past Surgical History: no surgical history Social history: no significant social history, single - Obstetrical History Expected Date of Delivery: 02/01/19 Actual Gestation: 33 Week(s) 2 Day(s) : 4 Medications and Allergies Allergies Allergy/AdvReac Type Severity Reaction Status Date / Time No Known Allergies Allergy Verified 12/15/18 05:33 Home Medications Medication Instructions Recorded Confirmed Last Taken Type Vit-Fe Fumar-FA [ 1 tab PO QDAY 09/25/17 09/25/17 09/24/17 History Vitamin] HYDROcodone/APAP 5-325 [[place] 1 each PO Q6HR PRN #20 tablet 09/27/17 Unknown Rx 5/325] Ibuprofen [Motrin] 800 mg PO Q8HR PRN #30 tablet 09/27/17 Unknown Rx Loratadine [Claritin] 10 mg PO DAILY #30 tablet 09/27/17 Unknown Rx Active Meds: Active Medications Acetaminophen (Tylenol) 650 mg PO Q4H PRN PRN Reason: Pain MILD(1-3)/Fever >100.5/BOUCHER Betamethasone Acet/Betameth SodPhos ([place] Soluspan) 12 mg IM Q24H SOPHY Stop: 12/16/18 07:01 Last Admin: 12/15/18 06:40 Dose: 12 mg Documented by: Docusate Sodium (Colace) 100 mg PO Q12H PRN PRN Reason: Constipation Lactated Ringer's (Lactated Ringers) 1,000 mls @ 125 mls/hr IV DIRECT SOPHY Ampicillin Sodium (Ampicillin/Ns 1 Gm/50 Ml) 1 gm in 50 mls @ 100 mls/hr IV Q4HR SOPHY; Protocol Magnesium Sulfate (Magnesium Sulfate 40gm/1000ml) 40 gm in 1,000 mls @ 50 mls/hr IV DIRECT SOPHY Last Admin: 12/15/18 07:58 Dose: 2 gm/hr, 50 mls/hr Documented by: Multivitamins/Iron/Calcium ( Vitamin) 1 each PO QDAY SOPHY Review of Systems All systems: negative - Vital Signs Vital signs: Vital Signs Pulse BP 82 114/63 12/15/18 05:39 12/15/18 05:39 Temp Pulse Resp BP Pulse Ox 97.8 F 95 H 18 127/66 12/15/18 08:36 12/15/18 08:36 12/15/18 08:36 12/15/18 08:36 - Physical Exam Breasts: Positive: deferred Cardiovascular: Regular rate Abdomen: Positive: normal appearance Genitourinary (Female): Positive: normal external genitalia Uterus: Positive: enlarged Extremities: Positive: normal - Obstetrical FHR: category 1 Uterine Contraction Monitor Mode: External Cervical Dilatation: 3 (per nurse) Cervical Effacement Percentage: 50 (per nurse) station: -3 Uterine Contraction Pattern: Irregular Uterine Tone Measurement Phase: Contraction Uterine Contraction Intensity: Moderate Results Result Diagrams: 12/15/18 06:20 Abnormal lab results 12/15/18 12/15/18 Range/Units 06:20 06:20 MCH 27 L (28-32) pg RDW 15.3 H (13.2-15.2) % U Epithel Cells (Auto) 14.0 H (0-13.0) /HPF All other labs normal. Ultrasound: report reviewed (Kenny, Breech, HERBIE 17.4, cervical length 3.1cm) Assessment and Plan - Patient Problems (1) 33 weeks gestation of Onset Date: 12/15/18 Current Visit: Yes Status: Acute Plan to address problem: A: IUP @ 33 1/7 weeks contractions Obesity P: Admit to L&D for IV hydration, IV Magnesium sulfate, IV Ampicillin and steroids (2) contractions Onset Date: 12/15/18 Current Visit: Yes Status: Acute (3) Obesity (BMI 35.0-39.9 without comorbidity) Onset Date: 12/15/18 Current Visit: No Status: Chronic
[2018-12-15] MEDS ORDERED: ZOFRAN IV PRN (09:00)
[2018-12-15] MEDS ORDERED: SODIUM CHLORIDE FLUSH SYRINGE 10 ML IV PRN (09:00)
[2018-12-15] MEDS ORDERED: LACTATED RINGERS 1,000 ML IV SCH (09:00)
[2018-12-15] MEDS ORDERED: PRENATAL VITAMIN PO SCH (10:00)
[2018-12-15] MEDS: PRENATAL VITAMIN PO SCH (10:26)
[2018-12-15] MEDS: LACTATED RINGERS 1,000 ML IV SCH (11:56)
[2018-12-15] MEDS: AMPICILLIN/NS 1 GM/50 ML 1 GM/50 ML BAG IV SCH ×3 (12:26→21:12)
[2018-12-15] MEDS: TYLENOL PO PRN ×2 (14:25→22:43)
--- NOTE | 2018-12-15 16:24 | Ultrasound Report ---
ULTRASOUND OB BIOPHYSICAL PROFILE HISTORY: labor, intrauterine at 33 weeks. COMPARISON: None. TECHNIQUE: Transabdominal grayscale ultrasound. BIOPHYSICAL PROFILE: Movement: 2 Tone: 2 Breathin Amniotic Fluid: 2 Total: 6 out of 8 IMPRESSION biophysical profile 11/15. Signer Name: Luis Eduardo Castrejon Jr, MD Signed: 12/15/2018 4:20 PM Workstation Name: [id number]
[2018-12-16] MEDS: AMPICILLIN/NS 1 GM/50 ML 1 GM/50 ML BAG IV SCH ×6 (03:07→22:29)
[2018-12-16] MEDS: LACTATED RINGERS 1,000 ML IV SCH ×2 (03:08→17:09)
[2018-12-16] MEDS: MAGNESIUM SULFATE 40GM/1000ML 40 GM/1,000 ML BAG IV SCH ×2 (03:09→22:43)
[2018-12-16] MEDS: TYLENOL PO PRN ×2 (06:22→12:16)
[2018-12-16] MEDS: CELESTONE SOLUSPAN IM SCH (06:23)
[2018-12-16] MEDS: PRENATAL VITAMIN PO SCH ×2 (10:33→12:09)
[2018-12-16] MEDS ORDERED: PERCOCET 5/325 PO PRN ×2 (13:18→13:21)
--- NOTE | 2018-12-16 16:50 | Progress Note ---
Assessment and Plan - Patient Problems (1) 33 weeks gestation of Onset Date: 12/15/18 Current Visit: Yes Status: Acute Plan to address problem: A: IUP @ 33 2/7 weeks contractions - s/p steroids Obesity Breech P: Continue with IV hydration, IV Magnesium sulfate x 24hrs after steroids, and IV Ampicillin. Will reevaluate in AM for cervical change and possible C Section (2) contractions Onset Date: 12/15/18 Current Visit: Yes Status: Acute (3) Obesity (BMI 35.0-39.9 without comorbidity) Onset Date: 12/15/18 Current Visit: No Status: Chronic Subjective - Subjective Date of service: 12/16/18 Principal diagnosis: IUP @ 33 2/7 weeks; PTL; Breech Interval history: Pt is a 28yo HF EDC 02/01/19; EGA 33 2/7 weeks who presented to L&D complaining of RUC's,. She denies ROM or bleeding. She has is currently on IV Magnesium sulfate, IV Ampicillin and IM Steroids but is still carmen. Patient reports: movement normal, contractions, no new complaints, no loss of fluid, no vaginal bleeding Objective - Vital Signs Vital Signs: Vital Signs - 12hr 12/16/18 12/16/18 12/16/18 04:46 04:51 04:56 Temperature Pulse Rate 86 82 80 Respiratory Rate Blood Pressure O2 Sat by Pulse 100 100 100 Oximetry 12/16/18 12/16/18 12/16/18 05:01 05:06 05:11 Temperature Pulse Rate 82 78 79 Respiratory Rate Blood Pressure O2 Sat by Pulse 100 100 100 Oximetry 12/16/18 12/16/18 12/16/18 05:16 05:21 05:26 Temperature Pulse Rate 77 79 83 Respiratory Rate Blood Pressure 128/76 O2 Sat by Pulse 100 100 100 Oximetry 12/16/18 12/16/18 12/16/18 05:31 05:36 05:41 Temperature Pulse Rate 95 H 92 H 87 Respiratory Rate Blood Pressure O2 Sat by Pulse 100 99 99 Oximetry 12/16/18 12/16/18 12/16/18 05:46 05:51 05:56 Temperature Pulse Rate 85 85 85 Respiratory Rate Blood Pressure O2 Sat by Pulse 99 99 99 Oximetry 07/09/19 07/09/19 07/09/19 06:01 06:06 06:11 Temperature Pulse Rate 98 H 91 H 100 H Respiratory Rate Blood Pressure O2 Sat by Pulse 99 99 99 Oximetry 12/16/18 12/16/18 12/16/18 06:16 06:21 06:26 Temperature Pulse Rate 90 92 H 89 Respiratory Rate Blood Pressure 130/76 O2 Sat by Pulse 99 100 99 Oximetry 12/16/18 12/16/18 12/16/18 06:31 06:36 06:41 Temperature 98.4 F Pulse Rate 85 100 H 87 Respiratory Rate Blood Pressure O2 Sat by Pulse 100 98 97 Oximetry 12/16/18 12/16/18 12/16/18 06:46 06:51 06:56 Temperature Pulse Rate 85 94 H 87 Respiratory Rate Blood Pressure O2 Sat by Pulse 98 97 98 Oximetry 12/16/18 12/16/18 12/16/18 07:01 07:06 07:11 Temperature Pulse Rate 89 91 H 90 Respiratory Rate Blood Pressure O2 Sat by Pulse 98 98 97 Oximetry 12/16/18 12/16/18 12/16/18 07:16 07:21 07:26 Temperature Pulse Rate 85 96 H 83 Respiratory Rate Blood Pressure 124/72 O2 Sat by Pulse 98 99 98 Oximetry 12/16/18 12/16/18 12/16/18 07:31 07:36 07:41 Temperature Pulse Rate 86 84 94 H Respiratory Rate Blood Pressure O2 Sat by Pulse 99 99 100 Oximetry 12/16/18 12/16/18 12/16/18 07:46 07:51 07:56 Temperature Pulse Rate 75 86 86 Respiratory Rate Blood Pressure O2 Sat by Pulse 99 99 100 Oximetry 12/16/18 12/16/18 12/16/18 07:57 08:01 08:03 Temperature 97.7 F Pulse Rate 89 76 Respiratory 18 Rate Blood Pressure 118/69 O2 Sat by Pulse 99 Oximetry 12/16/18 12/16/18 12/16/18 08:06 08:11 08:16 Temperature Pulse Rate 74 81 76 Respiratory Rate Blood Pressure O2 Sat by Pulse 100 100 100 Oximetry 12/16/18 12/16/18 12/16/18 08:21 08:26 08:31 Temperature Pulse Rate 75 79 82 Respiratory Rate Blood Pressure 124/65 O2 Sat by Pulse 99 100 100 Oximetry 07/09/19 07/09/19 07/09/19 08:36 08:41 08:46 Temperature Pulse Rate 83 82 87 Respiratory Rate Blood Pressure O2 Sat by Pulse 100 100 98 Oximetry 12/16/18 12/16/18 12/16/18 08:51 08:56 09:01 Temperature Pulse Rate 79 77 94 H Respiratory Rate Blood Pressure O2 Sat by Pulse 100 99 99 Oximetry 12/16/18 12/16/18 12/16/18 09:06 09:11 09:16 Temperature Pulse Rate 80 81 84 Respiratory Rate Blood Pressure O2 Sat by Pulse 99 99 100 Oximetry 12/16/18 12/16/18 12/16/18 09:21 09:26 09:31 Temperature Pulse Rate 79 89 85 Respiratory Rate Blood Pressure 128/60 O2 Sat by Pulse 99 100 100 Oximetry 12/16/18 12/16/18 12/16/18 09:36 09:41 09:46 Temperature Pulse Rate 85 82 80 Respiratory Rate Blood Pressure O2 Sat by Pulse 99 99 100 Oximetry 12/16/18 12/16/18 12/16/18 09:51 09:56 10:01 Temperature Pulse Rate 84 87 92 H Respiratory Rate Blood Pressure O2 Sat by Pulse 98 98 99 Oximetry 12/16/18 12/16/18 12/16/18 10:06 10:11 10:16 Temperature Pulse Rate 95 H 89 91 H Respiratory Rate Blood Pressure O2 Sat by Pulse 98 100 99 Oximetry 12/16/18 12/16/18 12/16/18 10:21 10:26 10:31 Temperature Pulse Rate 84 89 86 Respiratory Rate Blood Pressure 128/75 O2 Sat by Pulse 98 100 99 Oximetry 12/16/18 12/16/18 12/16/18 10:36 10:41 10:46 Temperature Pulse Rate 77 87 79 Respiratory Rate Blood Pressure O2 Sat by Pulse 100 97 99 Oximetry 12/16/18 12/16/18 12/16/18 10:51 10:56 11:01 Temperature Pulse Rate 86 79 83 Respiratory Rate Blood Pressure O2 Sat by Pulse 99 98 99 Oximetry 12/16/18 12/16/18 12/16/18 11:06 11:11 11:16 Temperature Pulse Rate 84 105 H 110 H Respiratory Rate Blood Pressure O2 Sat by Pulse 100 99 99 Oximetry 12/16/18 12/16/18 12/16/18 11:21 11:26 11:31 Temperature Pulse Rate 87 89 103 H Respiratory Rate Blood Pressure 118/62 O2 Sat by Pulse 100 99 98 Oximetry 12/16/18 12/16/18 12/16/18 11:36 11:41 11:46 Temperature Pulse Rate 78 77 85 Respiratory Rate Blood Pressure O2 Sat by Pulse 98 98 98 Oximetry 12/16/18 12/16/18 12/16/18 11:51 11:56 12:01 Temperature Pulse Rate 104 H 91 H 94 H Respiratory Rate Blood Pressure O2 Sat by Pulse 99 98 100 Oximetry 12/16/18 12/16/18 12/16/18 12:05 12:06 12:11 Temperature 97.9 F Pulse Rate 98 H 92 H Respiratory 18 Rate Blood Pressure O2 Sat by Pulse 99 100 Oximetry 12/16/18 12/16/18 12/16/18 12:16 12:21 12:26 Temperature Pulse Rate 88 97 H 84 Respiratory Rate Blood Pressure 137/81 O2 Sat by Pulse 100 100 100 Oximetry 12/16/18 12/16/18 12/16/18 12:31 12:36 12:41 Temperature Pulse Rate 91 H 91 H 99 H Respiratory Rate Blood Pressure O2 Sat by Pulse 100 100 100 Oximetry 12/16/18 12/16/18 12/16/18 12:46 12:51 12:56 Temperature Pulse Rate 93 H 91 H 95 H Respiratory Rate Blood Pressure O2 Sat by Pulse 100 100 100 Oximetry 12/16/18 12/16/18 12/16/18 13:01 13:06 13:11 Temperature Pulse Rate 86 86 106 H Respiratory Rate Blood Pressure O2 Sat by Pulse 99 99 98 Oximetry 12/16/18 12/16/18 12/16/18 13:16 13:21 13:26 Temperature Pulse Rate 99 H 88 98 H Respiratory Rate Blood Pressure 132/77 O2 Sat by Pulse 97 98 98 Oximetry 12/16/18 12/16/18 12/16/18 13:31 13:36 13:41 Temperature Pulse Rate 87 88 82 Respiratory Rate Blood Pressure O2 Sat by Pulse 99 98 98 Oximetry 12/16/18 12/16/18 12/16/18 13:46 13:51 13:56 Temperature Pulse Rate 87 103 H 96 H Respiratory Rate Blood Pressure O2 Sat by Pulse 97 99 99 Oximetry 12/16/18 12/16/18 12/16/18 14:01 14:06 14:11 Temperature Pulse Rate 92 H 89 83 Respiratory Rate Blood Pressure O2 Sat by Pulse 99 98 99 Oximetry 12/16/18 12/16/18 12/16/18 14:16 14:21 14:26 Temperature Pulse Rate 87 90 107 H Respiratory Rate Blood Pressure 114/58 O2 Sat by Pulse 99 98 99 Oximetry 12/16/18 12/16/18 12/16/18 14:31 14:36 14:41 Temperature Pulse Rate 99 H 91 H 102 H Respiratory Rate Blood Pressure O2 Sat by Pulse 99 98 98 Oximetry 12/16/18 12/16/18 12/16/18 14:46 14:51 14:56 Temperature Pulse Rate 101 H 88 87 Respiratory Rate Blood Pressure O2 Sat by Pulse 99 98 98 Oximetry 12/16/18 12/16/18 12/16/18 15:01 15:06 15:11 Temperature Pulse Rate 96 H 88 99 H Respiratory Rate Blood Pressure O2 Sat by Pulse 99 99 98 Oximetry 12/16/18 12/16/18 12/16/18 15:16 15:21 15:26 Temperature Pulse Rate 93 H 83 81 Respiratory Rate Blood Pressure O2 Sat by Pulse 98 98 98 Oximetry 12/16/18 12/16/18 12/16/18 15:31 15:36 15:41 Temperature Pulse Rate 89 85 82 Respiratory Rate Blood Pressure O2 Sat by Pulse 98 98 98 Oximetry 12/16/18 12/16/18 12/16/18 15:46 15:51 15:56 Temperature Pulse Rate 77 94 H 92 H Respiratory Rate Blood Pressure O2 Sat by Pulse 98 99 99 Oximetry 12/16/18 12/16/18 12/16/18 16:01 16:06 16:11 Temperature Pulse Rate 83 79 82 Respiratory Rate Blood Pressure O2 Sat by Pulse 99 98 97 Oximetry 12/16/18 12/16/18 12/16/18 16:16 16:21 16:26 Temperature Pulse Rate 84 95 H 77 Respiratory Rate Blood Pressure O2 Sat by Pulse 97 97 98 Oximetry 12/16/18 12/16/18 12/16/18 16:31 16:36 16:41 Temperature Pulse Rate 89 82 79 Respiratory Rate Blood Pressure O2 Sat by Pulse 98 99 99 Oximetry - Exam Abdomen: Present: normal appearance Uterus: Present: normal FHR: category 1 Uterine Contraction Monitor Mode: External Cervical Dilatation: 3.5 (per nurse) Cervical Effacement Percentage: 50 (per nurse) Uterine Contraction Pattern: Irregular Uterine Tone Measurement Phase: Contraction Uterine Contraction Intensity: Mild - Labs Labs: Abnormal Labs 12/15/18 12/15/18 12/15/18 06:20 06:20 23:01 MCH 27 L RDW 15.3 H Magnesium 4.70 H U Epithel Cells (Auto) 14.0 H Laboratory Results - last 24 hr 12/15/18 23:01 Magnesium 4.70 H
[2018-12-17] MEDS: AMPICILLIN/NS 1 GM/50 ML 1 GM/50 ML BAG IV SCH ×2 (02:04→08:24)
--- NOTE | 2018-12-17 09:22 | Progress Note ---
Assessment and Plan - Patient Problems (1) 33 weeks gestation of Onset Date: 12/15/18 Current Visit: Yes Status: Acute Plan to address problem: A: IUP @ 33 3/7 weeks contractions - resolved Obesity P: May go home today Follow up in office in 1 week (2) contractions Onset Date: 12/15/18 Current Visit: Yes Status: Resolved (3) Obesity (BMI 35.0-39.9 without comorbidity) Onset Date: 12/15/18 Current Visit: No Status: Chronic Subjective - Subjective Date of service: 12/17/18 Principal diagnosis: IUP @ 33 3/7 weeks; PTL Interval history: Pt is a 28yo HF EDC 02/01/19; EGA 33 3/7 weeks who presented to L&D complaining of RUC's. She received IV Magnesium sulfate, IV Ampicillin and Steroids and contractions have resolved. She denies ROM or bleeding. Initial u/s showed she was breech, but is now cephalic. Patient reports: movement normal, contractions, no new complaints, no loss of fluid, no vaginal bleeding Objective - Vital Signs Vital Signs: Vital Signs - 12hr 12/16/18 12/16/18 12/16/18 21:21 21:22 21:26 Temperature Pulse Rate 90 85 91 H Respiratory Rate Blood Pressure 107/56 Blood Pressure [Left] O2 Sat by Pulse 100 100 Oximetry 12/16/18 12/16/18 12/16/18 21:31 21:36 21:41 Temperature Pulse Rate 89 84 87 Respiratory Rate Blood Pressure Blood Pressure [Left] O2 Sat by Pulse 100 100 100 Oximetry 12/16/18 12/16/18 12/16/18 21:46 21:51 21:56 Temperature Pulse Rate 88 97 H 87 Respiratory Rate Blood Pressure Blood Pressure [Left] O2 Sat by Pulse 100 98 99 Oximetry 12/16/18 12/16/18 12/16/18 22:01 22:06 22:10 Temperature Pulse Rate 88 89 102 H Respiratory 16 Rate Blood Pressure Blood Pressure 112/62 [Left] O2 Sat by Pulse 100 99 96 Oximetry 12/16/18 12/16/18 12/16/18 22:11 22:16 22:21 Temperature Pulse Rate 90 91 H 94 H Respiratory Rate Blood Pressure Blood Pressure [Left] O2 Sat by Pulse 99 98 99 Oximetry 12/16/18 12/16/18 12/16/18 22:22 22:26 22:31 Temperature Pulse Rate 91 H 91 H 96 H Respiratory Rate Blood Pressure 106/53 Blood Pressure [Left] O2 Sat by Pulse 99 99 Oximetry 12/16/18 12/16/18 12/16/18 22:33 22:36 22:41 Temperature Pulse Rate 85 96 H 85 Respiratory Rate Blood Pressure 99/48 Blood Pressure [Left] O2 Sat by Pulse 99 99 Oximetry 12/16/18 12/16/18 12/16/18 22:45 22:46 22:51 Temperature Pulse Rate 102 H 109 H 103 H Respiratory 18 Rate Blood Pressure Blood Pressure 90/56 [Left] O2 Sat by Pulse 99 99 99 Oximetry 12/16/18 12/16/18 12/16/18 22:56 23:01 23:06 Temperature Pulse Rate 93 H 89 92 H Respiratory Rate Blood Pressure Blood Pressure [Left] O2 Sat by Pulse 100 100 100 Oximetry 12/16/18 12/16/18 12/16/18 23:11 23:13 23:16 Temperature 98.6 F Pulse Rate 94 H 87 Respiratory 16 Rate Blood Pressure Blood Pressure 100/60 [Left] O2 Sat by Pulse 100 96 99 Oximetry 12/16/18 12/16/18 12/16/18 23:21 23:26 23:31 Temperature Pulse Rate 90 101 H 88 Respiratory Rate Blood Pressure 122/74 Blood Pressure [Left] O2 Sat by Pulse 99 100 100 Oximetry 12/16/18 12/16/18 12/16/18 23:36 23:41 23:46 Temperature Pulse Rate 96 H 99 H 82 Respiratory Rate Blood Pressure Blood Pressure [Left] O2 Sat by Pulse 99 100 99 Oximetry 12/16/18 12/16/18 12/17/18 23:51 23:56 00:01 Temperature Pulse Rate 80 80 79 Respiratory Rate Blood Pressure Blood Pressure [Left] O2 Sat by Pulse 99 98 99 Oximetry 12/17/18 12/17/18 12/17/18 00:06 00:11 00:16 Temperature Pulse Rate 79 77 75 Respiratory Rate Blood Pressure Blood Pressure [Left] O2 Sat by Pulse 98 97 99 Oximetry 12/17/18 12/17/18 12/17/18 00:21 00:22 00:26 Temperature Pulse Rate 79 79 80 Respiratory Rate Blood Pressure 105/51 Blood Pressure [Left] O2 Sat by Pulse 100 98 Oximetry 12/17/18 12/17/18 12/17/18 00:29 00:31 00:36 Temperature Pulse Rate 87 82 79 Respiratory Rate Blood Pressure Blood Pressure [Left] O2 Sat by Pulse 94 94 94 Oximetry 12/17/18 12/17/18 12/17/18 00:41 00:46 00:51 Temperature Pulse Rate 78 78 78 Respiratory Rate Blood Pressure Blood Pressure [Left] O2 Sat by Pulse 99 99 99 Oximetry 12/17/18 12/17/18 12/17/18 00:56 01:01 01:06 Temperature Pulse Rate 79 79 73 Respiratory Rate Blood Pressure Blood Pressure [Left] O2 Sat by Pulse 99 99 99 Oximetry 12/17/18 12/17/18 12/17/18 01:11 01:16 01:21 Temperature Pulse Rate 73 76 68 Respiratory Rate Blood Pressure Blood Pressure [Left] O2 Sat by Pulse 99 100 100 Oximetry 12/17/18 12/17/18 12/17/18 01:22 01:26 01:31 Temperature Pulse Rate 71 73 80 Respiratory Rate Blood Pressure 114/56 Blood Pressure [Left] O2 Sat by Pulse 100 100 Oximetry 12/17/18 12/17/18 12/17/18 01:36 01:41 01:46 Temperature Pulse Rate 75 74 78 Respiratory Rate Blood Pressure Blood Pressure [Left] O2 Sat by Pulse 100 99 98 Oximetry 12/17/18 12/17/18 12/17/18 01:51 01:56 02:01 Temperature Pulse Rate 78 75 94 H Respiratory Rate Blood Pressure Blood Pressure [Left] O2 Sat by Pulse 98 99 100 Oximetry 12/17/18 12/17/18 02:06 08:20 Temperature Pulse Rate 89 67 Respiratory Rate Blood Pressure 118/67 Blood Pressure [Left] O2 Sat by Pulse 100 Oximetry - Exam Abdomen: Present: normal appearance, soft Uterus: Present: normal FHR: category 1 Uterine Contraction Monitor Mode: External Cervical Dilatation: 3 Cervical Effacement Percentage: 50 station: -3 Uterine Contraction Pattern: Irregular Uterine Tone Measurement Phase: Contraction Uterine Contraction Intensity: Mild - Labs Labs: Abnormal Labs 12/15/18 12/15/18 12/15/18 06:20 06:20 23:01 MCH 27 L RDW 15.3 H Magnesium 4.70 H U Epithel Cells (Auto) 14.0 H 12/16/18 21:13 MCH RDW Magnesium > 6.08 H U Epithel Cells (Auto) Laboratory Results - last 24 hr 12/16/18 21:13 Magnesium > 6.08 H - Results US- obstetric: report reviewed (Cephalic)
[2018-12-17] MEDS: PRENATAL VITAMIN PO SCH (10:52)
[2018-12-17] MEDS ORDERED: PROCARDIA*For Tocolysis only PO SCH (12:00)
--- NOTE | 2018-12-17 12:12 | Ultrasound Report ---
ULTRASOUND OB LIMITED HISTORY: labor, evaluate presentation. TECHNIQUE: Transabdominal ultrasound with color Doppler imaging. FINDINGS: A single viable intrauterine is identified in cephalic position. heart rate measures 134 bpm. The cervix is obscured. IMPRESSION: Cephalic position. Signer Name: Luis Eduardo Castrejon Jr, MD Signed: 12/17/2018 12:08 PM Workstation Name: [id number]
[2018-12-17 12:36] VITALS: BP 109/61
--- NOTE | 2018-12-17 14:01 | Discharge Summary ---
Providers - Providers Date of Admission: 12/15/18 06:46 Date of discharge: 12/17/18 Attending physician: SHI DESAI 12/15/18 08:45 Consult to Physician [CONS] Routine Comment: Consulting Provider: WALDO MURILLO Physician Instructions: Reason For Exam: IUP @ 33 weeks; PTL Primary care physician: SHI DESAI Hospitalization Reason for admission: IUP - , labor Other procedures: none complications: none Discharge diagnosis: other (IUP @ 33 3/7 weeks; PTL - resolved) Hospital course: Pt is a 28yo HF EDC 02/01/19; EGA 33 3/7 weeks who presented to L&D complaining of RUC's. She received IV Magnesium sulfate, IV Ampicillin and Steroids and contractions have resolved. She denied ROM or bleeding. Initial u/s showed she was breech, but is now cephalic. Her cervical exam is unchanged, and therefore she will be discharged to home in stable condition. Condition at discharge: Good Disposition: DC-01 TO HOME OR SELFCARE - Discharge Diagnoses (1) 33 weeks gestation of Status: Acute (2) contractions Status: Resolved (3) Obesity (BMI 35.0-39.9 without comorbidity) Status: Chronic Plan - Provider Discharge Summary Activity: routine, no sex for 6 weeks, no heavy lifting 4 weeks, no strenuous exercise Diet: routine Instructions: routine Additional instructions: [] Smoking cessation referral if applicable(refer to patient education folder for contact #) [] Refer to [facility] Booklet Call your doctor immediately for: * Fever > 100.5 * Heavy vaginal bleeding ( >1 pad per hour) * Severe persistent headache * Shortness of breath * Reddened, hot, painful area to leg or breast * Drainage or odor from incision. * Keep incision clean and dry at all times and follow doctor's instructions regarding bathing/showering - Follow up plan Follow up: SHI DESAI MD [Primary Care Provider] - 7 Days Forms: [facility] Discharge Summary
== END 2018-12-17 13:15 | disposition home or self-care (01) | DRG 778 ==
LOC: TRG 05:18 → LD 06:46
PROVIDERS: ADMIT Obstetrics & Gynecology; ATTEND Obstetrics & Gynecology
DX: O60.03 Preterm labor without delivery, third trimester (principal); Z3A.33 33 weeks gestation of pregnancy; O99.213 Obesity complicating pregnancy, third trimester; E66.9 Obesity, unspecified
CPT/HCPCS: 36415; 76805; 76815; 76819; 80307; 81001; 83735; 85025; 86592; 86706; 86762; 86803; 86850; 86900; 86901; 87806; G0378; J0290; J0702; J3475; J7120

== ENCOUNTER 2019-01-06 23:10 | Outpatient (CLI) | payer MEDICAID ==
[2019-01-07 01:18] VITALS: BP 112/66
== END 2019-01-07 01:38 | disposition home or self-care (01) ==
LOC: TRG 23:10 → LD 23:35 → TRG 01-07 01:38
PROVIDERS: ATTEND Obstetrics & Gynecology
DX: O47.03 False labor before 37 completed weeks of gestation, third trimester (principal); O13.3 Gestational [pregnancy-induced] hypertension without significant proteinuria, third trimester; Z3A.36 36 weeks gestation of pregnancy
CPT/HCPCS: 59025

== ENCOUNTER 2019-01-24 14:11 | Inpatient (IN) | payer MEDICAID ==
[2019-01-24] MEDS ORDERED: XYLOCAINE 2% INFILTRATI ONE (15:36)
[2019-01-24] MEDS ORDERED: SUBLIMAZE IV PRN (15:36)
[2019-01-24] MEDS ORDERED: BRETHINE SUB-Q PRN (15:36)
[2019-01-24] MEDS ORDERED: AMPICILLIN/NS 2 GM/100 ML 2 GM/100 ML BAG IV ONE (15:36)
--- NOTE | 2019-01-24 15:42 | History and Physical Report ---
History of Present Illness Date of examination: 01/24/19 Date of admission: 01/24/19 Chief complaint: Labor History of present illness: 28 year old presents to L&D in active labor. Patient denies leaking of water or vaginal bleeding. Patient reports active movement. Patient received care at [facility] and records are available. EDC 02/01/19. Patient denies complications with this . labs are not available and these have been drawn at time of admission. 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 denies: smoking, alcohol abuse, prescription drug abuse, IV drug use - Obstetrical History Expected Date of Delivery: 02/01/19 Actual Gestation: 38 Week(s) 6 Day(s) : 4 Para: 3 Hx # Term Pregnancies: 3 Number of Pregnancies: 0 Spontaneous Abortions: 0 Induced : 0 Number of Living Children: 3 Medications and Allergies Allergies Allergy/AdvReac Type Severity Reaction Status Date / Time No Known Allergies Allergy Verified 12/15/18 05:33 Home Medications Medication Instructions Recorded Confirmed Last Taken Type Vit-Fe Fumar-FA [ 1 tab PO QDAY 09/25/17 09/25/17 09/24/17 History Vitamin] HYDROcodone/APAP 5-325 [[place] 1 each PO Q6HR PRN #20 tablet 09/27/17 Unknown Rx 5/325] Ibuprofen [Motrin] 800 mg PO Q8HR PRN #30 tablet 09/27/17 Unknown Rx Loratadine [Claritin] 10 mg PO DAILY #30 tablet 09/27/17 Unknown Rx Active Meds: Active Medications Ephedrine Sulfate (Ephedrine Sulfate) 10 mg IV Q2M PRN PRN Reason: Hypotension Fentanyl (Sublimaze) 100 mcg IV Q2H PRN PRN Reason: Labor Pain Oxytocin/Sodium Chloride (Pitocin/Ns 20 Unit/1000ml Drip) 20 units in 1,000 mls @ 125 mls/hr IV DIRECT SOPHY Lactated Ringer's (Lactated Ringers) 1,000 mls @ 125 mls/hr IV DIRECT SOPHY Ampicillin Sodium (Ampicillin/Ns 2 Gm/100 Ml) 2 gm in 100 mls @ 100 mls/hr IV ONCE ONE; Protocol Stop: 01/24/19 16:35 Ampicillin Sodium (Ampicillin/Ns 1 Gm/50 Ml) 1 gm in 50 mls @ 100 mls/hr IV Q4HR [facility]; Protocol Terbutaline Sulfate (Brethine) 0.25 mg SUB-Q ONCE PRN PRN Reason: Hyperstimulation/Hypertonicity Review of Systems All systems: negative (contractions) - Vital Signs Vital signs: Vital Signs Pulse BP 75 110/66 01/24/19 14:42 01/24/19 14:42 Temp Pulse Resp BP Pulse Ox 75 110/66 01/24/19 14:42 01/24/19 14:42 - Physical Exam Abdomen: Positive: normal appearance, soft. Negative: distention, tenderness, guarding, rigidity Genitourinary (Female): Positive: normal external genitalia, normal perenium. Negative: perineal/vulvar lesions Vagina: Positive: normal moisture Uterus: Positive: enlarged. Negative: tender Anus/Rectum: Positive: normal perianal skin Extremities: Positive: normal, edema. Negative: tenderness - Obstetrical FHR: category 1 Uterine Contraction Monitor Mode: External Cervical Dilatation: 5.5 Cervical Effacement Percentage: 90 station: -1 Uterine Contraction Pattern: Regular Uterine Contraction Intensity: Moderate Results All other labs normal. Assessment and Plan A: at 38 weeks, 6 days gestation. Labor. GBS unknown. P: Admit. Continuous EFM. GBS prophylaxis. Anticipate vaginal .
[2019-01-24] MEDS ORDERED: PITOCin/NS 20 UNIT/1000ML DRIP 20 UNITS/1,000 ML BAG IV SCH (16:00)
[2019-01-24] MEDS: LACTATED RINGERS 1,000 ML IV SCH ×2 (17:00→20:06)
[2019-01-24 17:05] LABS: Hemoglobin 11.4 gm/dl (10.1-14.3); Mean Corpuscular HGB Conc 33 % (30-34); Mean Corpuscular Volume 80 fl (79-97); Platelet Count 157 K/mm3 (140-440); Red Blood Count 4.41 M/mm3 (3.65-5.03)
[2019-01-24] MEDS ORDERED: NARCAN 2 MG/2 ML IV PRN (18:34)
--- NOTE | 2019-01-24 18:36 | Anesthesia Consultation ---
Anesthesia Consult and Med Hx Date of service: 01/24/19 - Airway Anesthetic Teeth Evaluation: Good ROM Head & Neck: Adequate Mental/Hyoid Distance: Adequate Mallampati Class: Class II Intubation Access Assessment: Probably Good - Pulmonary Exam CTA: Yes - Cardiac Exam Cardiac Exam: RRR - Pre-Operative Health Status ASA Pre-Surgery Classification: ASA2 Proposed Anesthetic Plan: Epidural - Pulmonary Hx Asthma: No COPD: No Hx Pneumonia: No - Cardiovascular System Hx Hypertension: No - Central Nervous System Hx Seizures: No Hx Psychiatric Problems: No - Endocrine Hx Renal Disease: No Hx End Stage Renal Disease: No Hx Hypothyroidism: No Hx Hyperthyroidism: No - Hematic Hx Anemia: No Hx Sickle Cell Disease: No - Other Systems Hx Alcohol Use: No Hx Obesity: Yes
[2019-01-24] MEDS ORDERED: fentaNYL-BUPIV 2 MCG/ML-0.125% 200 MCG/100 ML BAG EPIDURAL SCH (19:00)
[2019-01-24] MEDS ORDERED: AMPICILLIN/NS 1 GM/50 ML 1 GM/50 ML BAG IV SCH (19:40)
--- NOTE | 2019-01-24 19:59 | Ultrasound Report ---
[facility] COMPLETE OBSTETRIC ULTRASOUND HISTORY: COMPARISON: None. TECHNIQUE: Complete transabdominal obstetric sonogram. FINDINGS: Gestation: Single monochorionic monoamniotic intrauterine fetus Placenta: Anterior location and free of the internal os. The leading margin of the placenta lies cm from the internal os. No convincing evidence of placenta abruption Presentation: Currently cephalic. BIOMETRY: Biparietal diameter: 8.7 cm corresponding to34 weeks 6 days Head circumference: 32.3 cmcorresponding to36 weeks 3 days Abdominal circumference: 33.7 cmcorresponding to37 weeks 4 days Femur length: 7.5 cmcorresponding to38 weeks 2 days Estimated gestational age based on clinical history/previous ultrasound: 38 weeks 6 days with TERRIE 01/09 Estimated gestational age based on today's measurements: 36 weeks 6 days TERRIE 02/15/2019 Estimated weight: 3179 + -470 grams Heart rate 131 bpm IMPRESSION Single living intrauterine at approximately 36 weeks 6 days Signer Name: Russel Rivers MD Signed: 01/24/2019 7:54 PM Workstation Name: [id number]
[2019-01-24] MEDS ORDERED: PITOCin/NS 30 UNIT/500ML 30 UNITS/500 ML BAG IV SCH (20:00)
--- NOTE | 2019-01-24 20:03 | Event Note ---
Date: 01/24/19 Pitocin augmentation of labor ordered. Patient consented to Pitocin augmentation of labor.
[2019-01-24] MEDS ORDERED: MILK OF MAGNESIA PO PRN (23:19)
[2019-01-24] MEDS ORDERED: DULCOLAX PR PRN (23:19)
[2019-01-24] MEDS ORDERED: TUCKS PAD TP PRN (23:19)
[2019-01-24] MEDS ORDERED: LANSINOH TP PRN (23:19)
--- NOTE | 2019-01-24 23:26 | Procedure Note ---
OB Delivery Note - Delivery Date of Delivery: 01/24/19 Surgeon: VENANCIO FUENTES Estimated blood loss: other (150 cc) - Vaginal Delivery presentation: vertex Delivery position: OA Intrapartum events: none Delivery induction: none Delivery augmentation: rupture of membranes Delivery monitor: external FHT, external uterine Route of delivery: Delivery placenta: spontaneous Delivery cord: 3 umbilical vessels Episiotomy: none Delivery laceration: none Anesthesia: epidural Delivery comments: Spontaneous vaginal delivery at 23:07 of liveborn male infant weighing 3480 grams over intact perineum with apgars of 9/9. Epidural anesthesia. Baby placed skin to skin with mom immediately after . Dried and bulb suctioned. Spontaneous cry and respirations. 3 vessel cord double clamped and cut. Cord blood obtained. Spontaneous delivery of intact placenta and membranes. EBL 150 cc. Pitocin to IV fluids after delivery of placenta. Fundus firm and midline. No lacerations noted. Vaginal sweep negative. Sponge count correct. Mother and baby stable.
[2019-01-24] MEDS: IBUPROFEN PO SCH (23:45)
[2019-01-24] MEDS ORDERED: SODIUM CHLORIDE FLUSH SYRINGE 10 ML IV PRN (23:45)
[2019-01-25] MEDS: NORCO 5/325 PO PRN ×2 (02:37→08:51)
[2019-01-25] MEDS: IBUPROFEN PO SCH ×4 (05:44→20:18)
[2019-01-25 06:27] LABS: Hepatitis C Virus Antibody Non-Reactive (NonReactive)
[2019-01-25 11:45] LABS: Hematocrit 30.8 % (30.3-42.9)
--- NOTE | 2019-01-25 23:31 | Progress Note ---
Assessment and Plan A: day 1 S/P . Anemia secondary to blood loss and . P: Supplement with iron. Encourage ambulation. Subjective - Subjective Date of service: 01/25/19 Principal diagnosis: day 1 S/P Interval history: day 1 S/P . Doing well. No complaints. Patient reports: appetite normal, voiding normally, pain well controlled, flatus, ambulating normally, no dizzy ambulation, no nauseated [place]: doing well Objective - Vital Signs Latest vital signs: Vital Signs Temp Pulse Resp BP BP 01/25/19 20:18 18 01/25/19 15:55 98.2 F 75 18 112/69 01/25/19 12:50 98.0 F 18 01/25/19 12:05 97.9 F 80 18 113/50 01/25/19 08:30 98.2 F 101 H 18 115/64 01/25/19 04:00 98.7 F 66 19 101/72 01/25/19 01:15 18 01/25/19 00:32 72 121/56 01/24/19 23:59 81 124/67 01/24/19 23:45 18 01/24/19 23:44 86 125/55 01/24/19 23:30 97.4 F L 86 18 129/61 Intake and Output 01/25/19 01/25/19 01/25/19 07:59 15:59 23:59 Intake Total 960 120 Output Total 750 1500 600 Balance -750 -540 -480 Intake: Oral 960 120 Output: Urine 750 1500 600 Void 750 1500 600 Other: Total, Intake Amount 320 120 Total, Output Amount 500 900 600 # Voids Void 1 - Exam Abdomen: Present: normal appearance, soft, normal bowel sounds. Absent: distention, tenderness, guarding, rigidity Uterus: Present: normal, firm, fundal height below umbilicus. Absent: bogginess, tenderness Extremities: Present: normal. Absent: tenderness, edema - Labs Labs: Abnormal lab results 01/25/19 Range/Units 11:01 Hgb 10.0 L (10.1-14.3) gm/dl
[2019-01-26] MEDS: IBUPROFEN PO SCH ×3 (00:08→11:33)
[2019-01-26] MEDS: NORCO 5/325 PO PRN ×2 (04:25→11:32)
[2019-01-26] MEDS: FEOSOL PO SCH ×2 (06:39→09:24)
[2019-01-26 10:30] VITALS: BP 100/44
--- NOTE | 2019-01-26 12:19 | Progress Note ---
Assessment and Plan - Patient Problems (1) (normal spontaneous vaginal delivery) Onset Date: 01/26/19 Current Visit: Yes Status: Resolved Plan to address problem: A: S/P - PPD #2 - Doing well Asymptomatic anemia - stable P: May go home today. (2) Acute blood loss anemia Onset Date: 01/26/19 Current Visit: Yes Status: Resolved Subjective - Subjective Date of service: 01/26/19 Principal diagnosis: s/p - PPD #2 Interval history: Pt is feeling well without complaints. Patient reports: appetite normal, voiding normally, pain well controlled, flatus, ambulating normally, no dizzy ambulation, no nauseated : doing well, nursing well, bottle feeding Objective - Vital Signs Latest vital signs: Vital Signs Temp Pulse Resp BP BP Pulse Ox 01/26/19 09:03 97.4 F L 76 18 100/44 96 01/26/19 00:30 98.8 F 62 16 115/68 01/25/19 20:18 18 01/25/19 15:55 98.2 F 75 18 112/69 01/25/19 12:50 98.0 F 18 Intake and Output 01/25/19 01/26/19 01/26/19 22:59 06:59 14:59 Intake Total 440 200 Output Total 1500 Balance -1060 200 Intake: Oral 440 200 Output: Urine 1500 Void 1500 Other: Total, Intake Amount 120 200 Total, Output Amount 600 # Voids Void 1 - Exam Breasts: Present: deferred Abdomen: Present: normal appearance, soft Uterus: Present: normal, firm, fundal height below umbilicus Extremities: Present: normal - Labs Labs: Laboratory Tests 01/24/19 01/24/19 01/24/19 16:35 16:35 16:35 WBC 8.4 RBC 4.41 Hgb 11.4 Hct 35.0 MCV 80 MCH 26 L MCHC 33 RDW 17.0 H Plt Count 157 RPR Nonreactive Hep Bs Antigen Hepatitis C Antibody HIV 1&2 Antibody Rapid HIV P24 Antigen Rubella IgG Antibody Blood Type O POSITIVE Antibody Screen Negative 01/25/19 01/25/19 01/25/19 05:20 05:20 05:20 WBC RBC Hgb Hct MCV MCH MCHC RDW Plt Count RPR Hep Bs Antigen Non-reactive Hepatitis C Antibody Non-reactive HIV 1&2 Antibody Rapid Non react HIV P24 Antigen Non react Rubella IgG Antibody Immune Blood Type Antibody Screen 01/25/19 11:01 WBC RBC Hgb 10.0 L Hct 30.8 MCV MCH MCHC RDW Plt Count RPR Hep Bs Antigen Hepatitis C Antibody HIV 1&2 Antibody Rapid HIV P24 Antigen Rubella IgG Antibody Blood Type Antibody Screen
--- NOTE | 2019-01-26 13:15 | Discharge Summary ---
Providers - Providers Date of Admission: 01/24/19 16:29 Date of discharge: 01/26/19 Attending physician: SHI DESAI Primary care physician: SHI DESAI Hospitalization Reason for admission: active labor, IUP at term Delivery: Episiotomy: none Laceration: none Other procedures: none complications: none Discharge diagnosis: IUP at term delivered [place] baby: male Hospital course: Unremarkable. Condition at discharge: Good Disposition: DC-01 TO HOME OR SELFCARE - Discharge Diagnoses (1) (normal spontaneous vaginal delivery) Status: Resolved (2) Acute blood loss anemia Status: Resolved Plan - Discharge Medications Prescriptions: Ferrous Sulfate [Feosol 325 MG tab] 325 mg PO BID #60 tablet Ibuprofen [Motrin 600 MG tab] 600 mg PO Q6HR #30 tablet Vit-Fe Fumar-FA [ Vitamin] 1 tab PO QDAY #30 tablet - Provider Discharge Summary Activity: routine, no sex for 6 weeks, no heavy lifting 4 weeks, no strenuous exercise Diet: routine Instructions: routine Additional instructions: [] Smoking cessation referral if applicable(refer to patient education folder for contact #) [] Refer to [facility]'s [facility] Booklet Call your doctor immediately for: * Fever > 100.5 * Heavy vaginal bleeding ( >1 pad per hour) * Severe persistent headache * Shortness of breath * Reddened, hot, painful area to leg or breast * Drainage or odor from incision. * Keep incision clean and dry at all times and follow doctor's instructions regarding bathing/showering - Follow up plan Follow up: SHI DESAI MD [Primary Care Provider] - 6 Weeks
== END 2019-01-26 16:20 | disposition home or self-care (01) | DRG 775 ==
LOC: TRG 14:11 → LD 16:29 → OB 01-25 01:48
PROVIDERS: ADMIT Obstetrics & Gynecology; ATTEND Obstetrics & Gynecology
PROC: 10E0XZZ Delivery of Products of Conception, External Approach (ICD-10-PCS; principal; 2019-01-24)
PROC: 3E0R3BZ Introduction of Anesthetic Agent into Spinal Canal, Percutaneous Approach (ICD-10-PCS; 2019-01-24)
PROC: 00HU33Z Insertion of Infusion Device into Spinal Canal, Percutaneous Approach (ICD-10-PCS; 2019-01-24)
DX: O99.214 Obesity complicating childbirth (principal); Z37.0 Single live birth; Z3A.38 38 weeks gestation of pregnancy; D62 Acute posthemorrhagic anemia; O90.81 Anemia of the puerperium
CPT/HCPCS: 36415; 76816; 85014; 85018; 85027; 86592; 86706; 86762; 86803; 86850; 86900; 86901; 87806; G0378; A6250; J0290; J2590; J7120